=== PATIENT | female | born 1975 | race Asian ===

== ENCOUNTER 2023-09-03 09:05 | Outpatient (CLI) | payer BC | END 2023-09-03 09:06 | disposition home or self-care (01) | LOC: CSHMAMMO 09:05 | PROVIDERS: ATTEND Family Medicine | DX: Z12.31 Encounter for screening mammogram for malignant neoplasm of breast (principal) | CPT/HCPCS: 77063; 77067 ==

== ENCOUNTER 2024-10-20 08:32 | Outpatient (CLI) | payer BC, OTHER | END 2024-10-20 08:33 | disposition home or self-care (01) | LOC: CSHMAMMO 08:32 | PROVIDERS: ATTEND Family Medicine | DX: Z12.31 Encounter for screening mammogram for malignant neoplasm of breast (principal) | CPT/HCPCS: 77063; 77067 ==

== ENCOUNTER 2024-10-20 11:35 | Day surgery (SDC) | payer OTHER ==
[2024-10-19 14:48] VITALS: BMI 24.7
[2024-10-20] MEDS ORDERED: PROPOFOL 40 ML ONE (11:57)
[2024-10-20] MEDS ORDERED: Lidocaine 1% PF 5 ML VIAL ONE (11:57)
[2024-10-20] MEDS ORDERED: PROPOFOL 20 ML ONE (12:09)
== END 2024-10-20 13:05 | disposition home or self-care (01) ==
LOC: CSHSDC 11:35
PROVIDERS: ATTEND Surgery
PROC: 0DJD8ZZ Inspection of Lower Intestinal Tract, Via Natural or Artificial Opening Endoscopic (ICD-10-PCS; principal; 2024-10-20)
DX: Z12.11 Encounter for screening for malignant neoplasm of colon (principal); K64.9 Unspecified hemorrhoids; Z94.0 Kidney transplant status; Z79.899 Other long term (current) drug therapy
CPT/HCPCS: J2704